=== PATIENT | female | born 1955 | race Caucasian/White ===

== ENCOUNTER → 2020-01-28 10:39 | Outpatient (CLI) | payer OTHER, SELFPAY ==
--- NOTE | 2020-01-28 10:45 | FL_ITS ---
PROCEDURE: FL UPPER GI W AIR CLINICAL INDICATION: DYSPHAGIA COMPARISON: No exams were available for comparison TECHNIQUE: FLUOROSCOPY TIME : 2 minutes 8 seconds. Multiple digital fluoroscopic and spot images were obtained following oral ingestion of effervescent crystals and thick/thin liquid barium contrast. FINDINGS: There is normal swallowing mechanism and esophageal peristalsis demonstrated. No esophageal narrowing or stricture is seen. The gastroesophageal junction is normally positioned. However severe gastroesophageal reflux was demonstrated in multiple times. The stomach appears in normal course with normal mucosal pattern. There is no evidence of ulceration or other deformity identified within the stomach. The duodenal bulb, duodenal loop and upper jejunum are normal. IMPRESSION: 1. Severe gastroesophageal reflux was demonstrated. 2. Upper GI series is otherwise unremarkable. Dictated by: Michelle Lucio 01/28/2020 18:10 Electronically signed by Michelle Lucio in [place] 01/28/2020 18:10
== END ==
PROVIDERS: PCP Family Medicine; Visit Provider Nurse Practitioner Family
DX: R13.10 Dysphagia, unspecified (principal)
CPT/HCPCS: 74246

== ENCOUNTER 2021-01-11 17:38 | Emergency (ER) | payer OTHER, SELFPAY ==
[2021-01-11 17:40] VITALS: BP 181/78; PULSE 92; RESP 20; TEMP 37.1; O2SAT 97; BMI 31.8
--- NOTE | 2021-01-11 17:59 | HMH.EDUTC ---
[facility] – [place] Disposition Clinical Impression: Cellulitis of right thigh Disposition: Home, Self-Care Condition on Discharge: Good Instructions: Cellulitis Additional Instructions: Keep the affected area clean and dry. Follow up with your regular doctor. Take the antibiotics as directed and apply the topical antibiotics as directed. Apply warm wet compresses to the affected area three or four times per day. GO TO THE ER FOR ANY WORSENING SYMPTOMS Prescriptions: Sulfamethoxazole/Trimethoprim [Bactrim DS tablet] 1 each PO BID 10 Days #20 tab Transmission Status: Received by [id number] Mupirocin [Bactroban 2% Ointment 22gm tube] 1 applicatio TP TID 7 Days #1 tube Transmission Status: Received by [id number] cephALEXin [cephALEXin 500mg capsule] 500 mg PO Q6H 10 Days #40 cap Transmission Status: Received by [id number] Referrals: Bello Rand MD [Primary Care Provider] - Time of Disposition: 18:25 Medical Decision Making - Medical Records Medical records reviewed: No: I reviewed the patient's medical records. - Amadou Inquiry Pt receiving controlled substance: No Vital Signs: 01/11/21 17:40 01/11/21 18:36 Temperature 98.8 F 98.8 F Temperature Source Oral Pulse Rate 92 H Pulse Rate [Right Brachial] 92 H Respiratory Rate 20 20 Blood Pressure 181/78 H Blood Pressure [Right Arm] 181/78 H Blood Pressure Mean [Right Arm] 112 Blood Pressure Source [Right Arm] Automatic Cuff Blood Pressure Position [Right Arm] Sitting 02 Sat by Pulse Oximetry 97 Oxygen Delivery Method Room Air Orders (Tests/Meds): ED MEDICATIONS Discontinued Medications Generic Name Dose Route Start Last Admin Trade Name Freq PRN Reason Stop Dose Admin Ceftriaxone Sodium 1 gm 01/11/21 18:17 01/11/21 18:33 Ceftriaxone 1gm Vial IM 01/11/21 18:18 1 gm ONCE ONE Administration Protocol Lidocaine HCl 0 ml 01/11/21 18:17 01/11/21 18:33 Lidocaine 1% 5ml Pf Vial IM 01/11/21 18:18 2.1 ml ONCE ONE Administration [facility] [place] HPI - General Stated complaint: possible spiddle bite R leg Time Seen by Provider: 01/11/21 17:59 Mode of Arrival: Ambulatory Source of Information: Patient Limitations: No Limitations Description of Symptoms (Recalled from Triage Doc. by RN): PATIENT STATES SHE WAS BIT BY UNKNOWN INSECT ON BACK OF RIGHT THIGH ON MONDAY AND SINCE THEN AREA HAS GOTTEN SWOLLEN, RED, SORE, AND WARM TO TOUCH. DENIES FEVER HEENT Symptoms (Recalled from RN notes): No Resp Symptoms (Recalled from RN notes): No Skin Symptoms (Recalled from RN notes): Yes MS Symptoms (Recalled from RN notes): No Functional Status (Recalled from RN notes): WNL - History of Present Illness Provider Complaint: She states that for the past 2 days she has had a red painful area on her right upper thigh. She thought it was a bug bite, but it has got much more swollen and painful todays. She denies any fever/chills/maliase. She is having discomfort at the site. She is not diabetic. - Related Data Home Medications Medication Instructions Recorded Confirmed levothyroxine 75 mcg capsule 75 mcg PO ONCE 12/11/17 01/11/21 lovastatin 20 mg tablet 20 mg PO HS 12/11/17 01/11/21 Previous Rx's Medication Instructions Recorded Mupirocin [Bactroban 2% Ointment 1 applicatio TP TID 7 Days #1 tube 01/11/21 22gm tube] Sulfamethoxazole/Trimethoprim 1 each PO BID 10 Days #20 tab 01/11/21 [Bactrim DS tablet] cephALEXin [cephALEXin 500mg 500 mg PO Q6H 10 Days #40 cap 01/11/21 capsule] Allergies Allergy/AdvReac Type Severity Reaction Status Date / Time No Known Allergies Allergy Verified 01/11/21 17:57 - Worker's Comp Is this a Worker's Comp case?: No [facility] History - Hepatitis A Screen Drug use history?: No High risk sexual behaviors?: No History of sexually transmitted infection?: No Currently employed?: No Childcare worker?: No Do you have indoor plumbing?: Ye
[2021-01-11 18:36] VITALS: BP 181/78; PULSE 92; RESP 20; TEMP 37.1; O2SAT 97
== END 2021-01-11 18:46 | disposition home or self-care (01) ==
PROVIDERS: Emergency Provider Nurse Practitioner Family; PCP Family Medicine
DX: L03.115 Cellulitis of right lower limb (principal); S70.361A Insect bite (nonvenomous), right thigh, initial encounter; W57.XXXA Bitten or stung by nonvenomous insect and other nonvenomous arthropods, initial encounter; E78.5 Hyperlipidemia, unspecified
CPT/HCPCS: 96372; 99202; G0463

== ENCOUNTER → 2021-03-31 12:39 | Outpatient (CLI) | payer OTHER, SELFPAY ==
--- NOTE | 2021-03-31 12:44 | US_ITS ---
PROCEDURE: US THYROID CLINICAL INDICATION: THYROMEGALY COMPARISON: No exams were available for comparison FINDINGS: Right lobe: 3.7 x 1.8 x 2 cm. There is diffuse heterogeneous echogenicity. No discrete nodule evident. Left lobe: 4.6 x 1.7 x 1.6 cm. Diffuse heterogeneous echogenicity. Slightly hypoechoic 9 x 4 by 6 mm nodule fairly well-circumscribed wider than tall with no obvious calcifications. TR level 3. Isthmus: Mildly thickened at 4 mm Additional findings: IMPRESSION: Diffuse bilateral heterogeneous echogenicity of the thyroid with mildly enlarged left lobe raising the suspicion of Jamie's thyroiditis. TR level 3 nodule on the left less than 2.5 cm. Twelve month follow-up recommended. Dictated by: Mckinley Lundberg MD 03/31/2021 17:34 Mckinley Lundberg MD in [place] 03/31/2021 17:34
== END ==
PROVIDERS: PCP Family Medicine; Visit Provider Family Medicine
DX: E01.0 Iodine-deficiency related diffuse (endemic) goiter (principal)
CPT/HCPCS: 76536

== ENCOUNTER → 2021-10-20 09:21 | Outpatient (CLI) | payer OTHER, SELFPAY ==
--- NOTE | 2021-10-20 09:25 | XR_ITS ---
FINAL REPORT TECHNIQUE: Bone mineral density was calculated of the lumbar spine and hip. CLINICAL HISTORY: osteopenia FINDINGS: Using L1-4, the bone mineral density of the spine is 0.911 g/cm2, corresponding to T-score of -1.2 which is osteopenic. Using the right hip, the bone mineral density of the femoral neck is 0.766 g/cm2, corresponding to a T-score of -0.7 which is normal. Using the left hip, the bone mineral density of the femoral neck is 0.792 g/cm2, corresponding to a T-score of -0.5 which is normal. FRAX 10 year fracture risk is 7.2% for major osteoporotic fracture. NOTE: T-score: Standard deviation compared with peak bone mass of young adult mean. *Following the recommendations of the International Society of Bone densitometry, classification of hip BMD is based on the lower of two T-scores; total hip or femoral neck. IMPRESSION: Diminished bone mineral density of the lumbar spine consistent with osteopenia. Bone mineral density of the bilateral hips is normal. Reviewed, Interpreted and Dictated by Mayur Hanson III, MD Transcribed by Latia Gambino Authenticated by Mayur Hanson III, MD on 10/21/2021 10:54:42 AM [facility]
== END ==
PROVIDERS: PCP Family Medicine; Visit Provider Family Medicine
DX: Z13.820 Encounter for screening for osteoporosis (principal); M85.80 Other specified disorders of bone density and structure, unspecified site
CPT/HCPCS: 77080

== ENCOUNTER → 2022-01-13 08:38 | Outpatient (CLI) | payer OTHER, SELFPAY ==
[2022-01-13 08:51] LABS: Adenovirus F 40/41, stool Not Detected (NotDetected); Astrovirus Not Detected (NotDetected); Campylobacter Not Detected (NotDetected); Clostridium Difficile A/B, PCR Not Detected (NotDetected); Cryptosporidium Not Detected (NotDetected); Cyclospora Cayetanesis Not Detected (NotDetected); Entamoeba histolytica Not Detected (NotDetected); Enteroaggregative E coli Not Detected (NotDetected); Enteropathogenic E coli Not Detected (NotDetected); Enterotoxigenic E coli Not Detected (NotDetected); Giardia lamblia Not Detected (NotDetected); Norovirus Not Detected (NotDetected); Plesimonas Shigalloides, PCR Not Detected (NotDetected); Rotavirus A Not Detected (NotDetected); Salmonella, PCR Not Detected (NotDetected); Sapovirus Not Detected (NotDetected); Shiga-like toxin E coli Not Detected (NotDetected); Shigella Enterovasive E coli Not Detected (NotDetected); Vibrio Cholerae Not Detected (NotDetected); Vibrio, PCR Not Detected (NotDetected); Yersinia Entercolitica, PCR Not Detected (NotDetected)
== END ==
PROVIDERS: PCP Family Medicine; Visit Provider Nurse Practitioner Family
DX: K52.89 Other specified noninfective gastroenteritis and colitis (principal)
CPT/HCPCS: 87507

== ENCOUNTER → 2022-09-23 07:43 | Outpatient (CLI) | payer OTHER, SELFPAY ==
--- NOTE | 2022-09-23 07:49 | US_ITS ---
FINAL REPORT CLINICAL HISTORY: RUQ PAIN FINDINGS: ULTRASOUND RIGHT UPPER QUADRANT Sonographic imaging of the right upper quadrant was obtained. Note is made that this was a difficult scan. The pancreas is partially obscured. The liver has increased echogenicity consistent with fatty infiltration. There is no evidence of gallstones. There is no gallbladder wall thickening. There is no biliary ductal dilatation. The common duct is normal at 4 mm. Limited images of the right kidney are unremarkable. IMPRESSION: Fatty liver. Reviewed, Interpreted and Dictated by Gaston Lu MD Transcribed by Janeth Denson Authenticated and [facility]
== END ==
PROVIDERS: PCP Family Medicine; Visit Provider Physician Assistant
DX: R10.11 Right upper quadrant pain (principal)
CPT/HCPCS: 76705

== ENCOUNTER → 2022-10-24 11:58 | Outpatient (CLI) | payer OTHER, SELFPAY ==
--- NOTE | 2022-10-24 12:04 | XR_ITS ---
FINAL REPORT CLINICAL HISTORY: FOOT PAIN FINDINGS: LEFT FOOT Three views of the left foot demonstrate no acute fracture or dislocation. There are mild degenerative changes of the great toe. Small calcaneal spurs are noted. The soft tissues are unremarkable. IMPRESSION: No acute bony abnormality. Reviewed, Interpreted and Dictated by Mayur Hanson III, MD Transcribed by Adri Bojorquez Authenticated and [facility]
== END ==
PROVIDERS: PCP Family Medicine; Visit Provider Nurse Practitioner Family
DX: M79.672 Pain in left foot (principal)
CPT/HCPCS: 73630

== ENCOUNTER 2024-01-12 10:17 | Day surgery (SDC) | payer OTHER, SELFPAY ==
[2024-01-11 09:25] VITALS: BMI 30.1
[2024-01-12 10:28] VITALS: BMI 29.4
[2024-01-12 10:32] VITALS: BP 168/96; PULSE 100; RESP 18; TEMP 36.1; O2SAT 97
[2024-01-12] MEDS: LACTATED RINGERS 1000ML 1,000 ML 25 ML IV (10:47)
--- NOTE | 2024-01-12 11:16 | EXP.ANES.CKL ---
[facility] Disclaimer: The information contained in this section may have been updated after the patient was seen, as this information can be updated by other users. Medical History Hypothyroid Hypertension Intraductal papilloma of left breast History of breast cancer Surgical History History of breast surgery Family History Sister Cancer Breast Sister Cancer Breast, Pancreatic Social History (Updated 01/12/24 @ 10:29 by Aaliyah Cotter RN) Smoking Status: Never smoker alcohol intake: never substance use type: denies use current occupational status: other Travel in the last 8 weeks: None caffeine: Yes [facility] Anesthesia Checklist Patient Identification Patient Identification: Arm Band Structural Data Admitted From: Home Planned Operative Procedure/s: Colonoscopy Consent for Planned Operative Procedure(s) Verified: Yes Verified Documents: Surgical Consent and History and Physical NPO Status Verified Time NPO: 00:00 Additional verifications Anesthesia Reactions: No Airway Assessment Mallampati Score:: Class II C-Spine Mobility Assessed: Yes TMJ Mobility Assessed: Yes Dentition: Edentulous Neurological Assessment Level of Consciousness: Awake, Alert and Appropriate Anesthesia Plan Anesthesia Risk discussed: Yes Anesthesia Plan: Verified ASA Class: II Anesthesia Type: MAC
--- NOTE | 2024-01-12 11:53 | HMH.SCOPE ---
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 She was seen recently in the office for routine follow-up and had mention she needed a screening colonoscopy. This is initial screening colonoscopy. . Performing Provider:: Mayur Olivo MD Referring Provider:: Bello Rand MD . Sedation:: MAC sedation Procedure:: Patient history was obtained and appropriate physical examination was performed. Patient's medications and allergies were reviewed. Informed consent was obtained after explaining the benefits, alternatives, and risks of the procedure including, but not limited to, bleeding, perforation, missed lesions, and adverse reaction to anesthesia medications. Patient was transported to endoscopy procedure room. Patient was connected to monitoring devices. Throughout the procedure the patient's blood pressure, pulse, and oxygen saturations were monitored continuously. Patient identification and planned procedure were verified by the staff. Patient was positioned in lateral decubitus position. Digital anorectal exam was performed. Variable stiffness Olympus colonoscope was inserted and advanced under direct visualization to the cecum. Adequacy of the colonic preparation was noted. The colonoscope was advanced a short distance into the terminal ileum. The colonoscope was then slowly withdrawn while carefully examining the color, texture, anatomy, and integrity of the mucosoa circumferentially. Within the rectum retroflexion was performed. Colonoscope was then withdrawn. Impression: She had a redundant floppy atonic sigmoid colon which made advancement of the colonoscope rather difficult. Ultimately was advanced to the cecum. Within the cecum there was a moderate adenomatous pedunculated polyp removed with hot snare. In the rectum with retroflexion there was noted to be a small likely adenomatous polyp removed with cold snare. . Findings:: Moderate pedunculated cecal polyp Rectal polyp Redundant floppy atonic sigmoid colon Recommendations:: Repeat colonoscopy 3 to 5 years. Likely would benefit from using adult colonoscope given the redundancy and atony of her sigmoid colon. Complications:: None immediately apparent Estimated blood obtained (mL): 2 Colonoscopy Component Colonoscopy Component Was a colonoscopy performed during today's procedure?: Yes Recommended follow up colonoscopy of at least 10 years?: No If no, follow up colonoscopy recommended in ___ years?: 3-5 Reason for not recommending >/= 10 yr follow-up interval?: Polyps
[2024-01-12 11:57] VITALS: O2SAT 100
[2024-01-12 12:40] VITALS: BP 141/70; PULSE 95; RESP 16; TEMP 36.4; O2SAT 96
[2024-01-12 12:50] VITALS: BP 135/61; PULSE 91; RESP 16; O2SAT 97
[2024-01-12 13:00] VITALS: BP 138/82; PULSE 85; RESP 18; O2SAT 98
[2024-01-12 13:08] VITALS: BP 145/81; PULSE 82; RESP 16; O2SAT 97
== END 2024-01-12 13:10 | disposition home or self-care (01) ==
PROVIDERS: PCP Family Medicine; Visit Provider Surgery
PROC: 0DJD8ZZ Inspection of Lower Intestinal Tract, Via Natural or Artificial Opening Endoscopic (ICD-10-PCS; CPT 45385; principal; 2024-01-12 11:30)
DX: D12.0 Benign neoplasm of cecum (principal); D12.8 Benign neoplasm of rectum
CPT/HCPCS: 45385; 45380; J2704; J7120